=== PATIENT | male | born 1940 ===

== ENCOUNTER 2019-03-08 08:31 | Outpatient (CLI) | payer OTHER ==
[~2019-03-08] VITALS: Ht 172.7 cm; Wt 68.0 kg
== END 2019-03-08 09:45 | disposition home or self-care (01) ==
LOC: OFIC 805 08:31
DX: C02.9 Malignant neoplasm of tongue, unspecified (principal); R13.19 Other dysphagia

== ENCOUNTER 2019-06-09 11:47 | Outpatient (CLI) | payer OTHER ==
[~2019-06-09] VITALS: Ht 152.4 cm; Wt 68.0 kg
== END 2019-06-09 18:27 | disposition home or self-care (01) ==
LOC: OFIC 805 11:47
DX: C01 Malignant neoplasm of base of tongue (principal); R13.19 Other dysphagia